=== PATIENT | female | born 1950 | race Caucasian/White ===

== ENCOUNTER 2024-01-17 08:42 | Emergency (ER) | payer MEDICARE ==
[~2024-01-17] VITALS: Ht 149.9 cm; Wt 40.2 kg
[~2024-01-17 08:42] MED LIST: ACET-1008 PO; ALBU8.5H17 IH; CARI350T PO; CHOL100046 PO; DIAZ5TAB22 PO; LACT1CAP26 PO; METO-539 PO; SULF1TAB49 PO; VITA-290 PO; ZOLP10TA5 PO
[2024-01-17 09:52] LABS: BASOPHILS % (AUTO) 0.6 % (0-1); EOSINOPHILS % (AUTO) 0.3 % (0-6); HEMATOCRIT 38.9 % (35.0-45.0); HEMOGLOBIN 12.9 g/dl (12.0-16.0); LYMPHOCYTES # (AUTO) 1.3 X10'3 (1.1-4.8); LYMPHOCYTES % (AUTO) 17.4 % (21-51); MEAN CORPUSCULAR HEMOGLOBIN 30.9 PG (27.0-31.0); MEAN CORPUSCULAR HGB CONC 33.2 g/dL (33.0-36.5); MEAN CORPUSCULAR VOLUME 93.1 FL (78-98); MEAN PLATELET VOLUME 6.6 FL (7.4-10.4); MONOCYTES # (AUTO) 0.4 X10'3 (0-0.9); MONOCYTES % (AUTO) 5.5 % (2-12); NEUTROPHILS # (AUTO) 5.5 X10'3 (1.8-7.7); NEUTROPHILS % (AUTO) 76.2 % (42-75); PLATELET COUNT 396 X10'3 (140-440); RED BLOOD COUNT 4.18 X10'6 (4.20-5.60); RED CELL DISTRIBUTION WIDTH 12.5 % (11.5-14.5); WHITE BLOOD COUNT 7.2 X10'3 (4.5-11.0)
[2024-01-17] MEDS: HYDROcodone/acetaminophen 5mg/325mg tablet PO ONE (10:11)
[2024-01-17 10:24] LABS: ALBUMIN 4.2 G/DL (3.4-5.0); ANION GAP 12 (8-16); BLOOD UREA NITROGEN 12 MG/DL (7-18); BUN/CREATININE RATIO 11.7 (10.0-20.0); CALCIUM 9.8 MG/DL (8.5-10.1); CHLORIDE 93 MMOL/L (99-107); CREATININE 1.03 MG/DL (0.40-0.90); GLUCOSE 103 MG/DL (70-104); POTASSIUM 4.6 MMOL/L (3.5-5.1); SODIUM 127 MMOL/L (135-145); THYROID STIMULATING HORMONE 0.94 ulU/ml (0.34-4.50); TOTAL CARBON DIOXIDE 21.8 MMOL/L (24-32); eCRCL 31 ML/MIN; eGFR 53 ML/MIN
[2024-01-17] MEDS ORDERED: normal saline 1000ML IV soln IVB ONE (11:00)
[2024-01-17] MEDS ORDERED: SODI650T29 PO (11:20)
[2024-01-17 11:35] VITALS: BP 154/78; PULSE 80; RESP 16; TEMP 97.4; O2SAT 97
== END 2024-01-17 11:37 | disposition home or self-care (01) ==
LOC: ER 08:43
DX: M79.7 Fibromyalgia (principal); E78.00 Pure hypercholesterolemia, unspecified; I10 Essential (primary) hypertension; J45.909 Unspecified asthma, uncomplicated; G89.29 Other chronic pain; D41.9 Neoplasm of uncertain behavior of unspecified urinary organ; F41.0 Panic disorder [episodic paroxysmal anxiety]; F17.210 Nicotine dependence, cigarettes, uncomplicated; Z88.8 Allergy status to other drugs, medicaments and biological substances; Z79.899 Other long term (current) drug therapy
CPT/HCPCS: 36415; 80048; 84443; 85025; 99283